=== PATIENT | female | born 1995 | race Caucasian/White ===

== ENCOUNTER 2019-07-05 16:30 | Emergency (ER) | payer OTHER ==
[~2019-07-05] VITALS: Ht 157.5 cm; Wt 56.7 kg
[2019-07-05] MEDS ORDERED: ONDANSETRON ODT 4 MG TAB.RAPDIS. PO ONE (17:00)
[2019-07-05] MEDS ORDERED: ONDA4TAB12 PO (17:18)
--- NOTE | 2019-07-05 17:18 | PHYS DOC ---
Past Medical History Past Medical History: No Pertinent History Past Surgical History: Other Additional Past Surgical Histo: BILAT MYRINGOTOMY W/TUBES Alcohol Use: None Drug Use: None Adult General Chief Complaint Chief Complaint: ALLERGIC REACTION HPI HPI Patient is a 23 year old female who presents with states she has sinus congestion or cold that started last night. Patient states today she took 4 Mucinex fast medics thinking she supposed to take 4 which is only to take 2. Patient states her last hour she's been vomiting and became very nauseated and felt like she was going to faint. Patient states she's also very sleep deprived as she has a 4-month-old at home with no help. Patient states she finally asked for help today. Review of Systems Review of Systems GI: Denies abdominal pain. +nausea, +vomiting, denies bloody stools or diarrhea [] All other systems were reviewed and found to be within normal limits, except as documented in this note. Current Medications Current Medications Current Medications Medications (Trade) Dose Ordered Sig/Claudia Start Time Stop Time Status Last Admin Dose Admin Ondansetron HCl (Zofran Odt) 4 mg 1X ONCE 07/05/19 17:00 07/05/19 17:01 DC 07/05/19 17:03 4 MG Allergies Allergies Allergies Uncoded Allergies Type Severity Reaction Last Updated Verified MUCINEX FAST MAX Allergy Unknown NAUSEA/SHAKING 07/05/19 Physical Exam Physical Exam Constitutional: Well developed, well nourished, no acute distress, non-toxic appearance. [] HENT: Normocephalic, atraumatic, bilateral external ears normal, oropharynx moist, no oral exudates, nose normal. [] Eyes: PERRLA, EOMI, conjunctiva normal, no discharge. [] Neck: Normal range of motion, no tenderness, supple, no stridor. [] Cardiovascular:Heart rate regular rhythm, no murmur [] Lungs & Thorax: Bilateral breath sounds clear to auscultation [] Abdomen: Bowel sounds normal, soft, no tenderness, no masses, no pulsatile masses. [] Skin: Warm, dry, no erythema, no rash. [] Back: No tenderness, no CVA tenderness. [] Extremities: No tenderness, no cyanosis, no clubbing, ROM intact, no edema. [] Neurologic: Alert and oriented X 3, normal motor function, normal sensory function, no focal deficits noted. [] Psychologic: Affect normal, judgement normal, mood normal. Normal Physical Exam[] Current Patient Data Vital Signs Vital Signs Date Time Temp Pulse Resp B/P (MAP) Pulse Ox O2 Delivery O2 Flow Rate FiO2 07/05/19 17:44 99 18 139/63 (88) 99 Room Air 07/05/19 16:45 98.0 98.0 EKG EKG [] Radiology/Procedures Radiology/Procedures [] Course & Med Decision Making Course & Med Decision Making Bilateral lungs are Clear to auscultation in all lobes. Patient is alert and oriented. Skin pink warm and dry. Patient is tachycardic but she is very anxious. Vital signs otherwise within normal limits. Patient states that hours after she took the Mucinex is when she began having nausea and vomiting. Ambulatory with a steady gait. Afebrile. I called poison control that states that this is not consistent with acute overdose and the patient not to take anymore today and that this can cause GI upset. Poison control states that basically she just needs supportive care of which can be done at home. Patient states she's been drinking plenty of fluids. Patient states early this morning she took NyQuil and Advil. Patient states she does not take any other medicine she did not take any other Tylenol. Speaks in full clear sentences. PERRLA. Abdomen is soft and nontender. Patient denies abdominal pain, chest pain, shortness of air, headache, syncope, numbness or tingling, weakness, visual difficulties. Vital signs have normalized patient states she is feeling much better. Patient is discharged home and to follow up with primary care if needed. Eric Disclaimer Nelsonon Disclaimer This electronic medical record was generated, in whole or in part, using a voice recognition dictation system. Departure Departure Impression: Primary Impression: Nausea and vomiting in adult Additional Impression: Overdose Disposition: 01 HOME, SELF-CARE Condition: STABLE Patient Instructions: Nausea and Vomiting Additional Instructions: Follow-up with her primary care or here OB doctor. Read medicine instructions carefully. Do not take anymore Mucinex or anything with Tylenol in it for the rest of the day. Scripts Ondansetron (ONDANSETRON ODT) 4 Mg Tab.rapdis 1 TAB PO PRN Q6-8HRS, #16 TAB Prov: KAREEN IVEY ABSTRACT SEARCHER 07/05/19 Problem Qualifiers Additional Impression: Overdose Encounter type: initial encounter Injury intent: accidental or unintenti onal Qualified Codes: T50.901A - Poisoning by unspecified drugs, medicaments and biological substances, accidental (unintentional), initial encounter KAREEN IVEY ABSTRACT SEARCHER Jul 05, 2019 17:18
[2019-07-05 17:44] VITALS: BP 139/63
== END 2019-07-05 17:48 | disposition home or self-care (01) ==
LOC: ER 16:30
DX: T48.4X1A Poisoning by expectorants, accidental (unintentional), initial encounter (principal); R11.2 Nausea with vomiting, unspecified; Z88.8 Allergy status to other drugs, medicaments and biological substances; Y92.89 Other specified places as the place of occurrence of the external cause
CPT/HCPCS: 99283; Q0162

== ENCOUNTER → 2019-09-16 | Outpatient (CLI) | payer OTHER ==
[~2019-09-16] MED LIST: ONDA4TAB12 PO
--- NOTE | 2019-09-16 13:06 | KCIC ---
CHEST PA LATERAL INDICATION: Chest pain, pain with deep breathing. COMPARISON STUDY: None. FINDINGS: Lungs: Normal lung volume. No pulmonary mass or consolidation. Calcified pulmonary granuloma. The tracheobronchial tree and hilar structures are normal. Pleura: No pleural effusion or pneumothorax. Heart and Mediastinum: The cardiomediastinal silhouette is normal. The great vessels of the thorax are normal. Bones and Soft Tissues: The bones and soft tissues are within normal limits. IMPRESSION: No acute cardiopulmonary process. Electronically signed by: Ravindra Martinez MD (09/16/2019 1:04 PM) [facility]
== END | disposition home or self-care (01) ==
LOC: KCIC 09:45
PROVIDERS: ATTEND Family Medicine Adult Medicine
DX: J84.10 Pulmonary fibrosis, unspecified (principal)
CPT/HCPCS: 71046